=== PATIENT | male | born 1950 | race Caucasian/White ===

== ENCOUNTER 2017-05-30 17:48 | Emergency (ER) | payer MEDICARE, MEDICAID ==
[2017-05-30 18:52] LABS: ALT (SGPT) 72 U/L (8-55); AST (SGOT) 40 U/L (5-34); Alkaline Phosphatase 82 U/L (40-150); Anion Gap 16 mmol/L (10-20); BUN (Urea Nitrogen) 15 mg/dL (8.4-25.7); Bilirubin, Total 0.4 mg/dL (0.2-1.2); Calc. Creatinine Clearance 0 mL/min (70-130); Calcium 9.6 mg/dL (7.8-10.44); Carbon Dioxide 23 mmol/L (23-31); Chloride 104 mmol/L (98-107); Estimated GFR-MDRD 81; Globulin 3.2 g/dL (2.4-3.5); Protein, Total 7.4 g/dL (5.8-8.1)
[2017-05-30 18:53] LABS: Troponin I Less than 0.010 ng/mL (< 0.028)
[2017-05-30 19:02] LABS: Hematocrit 43.4 % (42.0-52.0); Mean Platelet Volume 8.6 fL (7.4-10.4); Neutrophil 37 % (42-75); Reactive Lymphocytes 13 % (0-10); White Blood Cell (WBC) Count 7.1 thou/uL (4.8-10.8)
--- NOTE | 2017-05-30 19:17 | CT ---
CT HEAD NONCONTRAST: Date: 05/30/17 CLINICAL HISTORY: HIV positive, vertigo, dizziness. FINDINGS: There is parenchymal volume loss with compensatory dilatation of the ventricular system. There is no acute intracranial hemorrhage, mass effect, or midline shift. Mild chronic microvascular ischemic dis ease present within the cerebral white matter. The imaged paranasal sinuses reveal no acute fluid lev els. IMPRESSION: 1. No acute intracranial abnormalities. 2. Mild chronic microvascular ischemic disease. POS: [facility]
--- NOTE | 2017-05-30 19:22 | RAD ---
FRONTAL RADIOGRAPH OF CHEST: Date: 05/30/17 COMPARISON: 10/20/16. HISTORY: Vertigo, dizzy. FINDINGS: Stable mild increased linear interstitial density noted. No pneumothorax, pleural fluid, focal consol idation, or alveolar edema. Heart and mediastinal contours are stable. IMPRESSION: No acute findings. POS: [facility]
[2017-05-30] MEDS ORDERED: Meclizine HCl 25 MG TAB ONE (19:25)
[2017-05-30 19:39] LABS: Bilirubin Negative (Negative); Blood, Urine Trace (Negative); Glucose, Urine (Dipstick) Negative (Negative); Ketone, Urine Negative (Negative); Nitrite Negative (Negative); Protein, Urine (Dipstick) Negative (Neg-Trace); Urobilinogen 0.2 mg/dL (0.2-1.0)
[2017-05-30 19:43] LABS: RBC/HPF 0-3 HPF (0-3); Squamous Epithelial 0-3 HPF (0-3); WBC/HPF 0-3 HPF (0-3)
== END 2017-05-30 20:07 | disposition home or self-care (01) ==
LOC: SCSER 17:48
DX: R42 Dizziness and giddiness (principal); K21.9 Gastro-esophageal reflux disease without esophagitis; B20 Human immunodeficiency virus [HIV] disease; E78.5 Hyperlipidemia, unspecified; I25.10 Atherosclerotic heart disease of native coronary artery without angina pectoris; I10 Essential (primary) hypertension; F41.9 Anxiety disorder, unspecified; Z79.82 Long term (current) use of aspirin; Z79.899 Other long term (current) drug therapy
CPT/HCPCS: 36415; 70450; 71010; 80053; 81003; 81015; 82553; 84484; 85025; 93005

== ENCOUNTER 2017-12-14 09:55 | Outpatient (CLI) | payer MEDICARE, MEDICAID | END 2017-12-14 09:56 | disposition home or self-care (01) | LOC: BICULT 09:55 | PROVIDERS: ATTEND Internal Medicine Infectious Disease | DX: K76.89 Other specified diseases of liver (principal); Z90.49 Acquired absence of other specified parts of digestive tract | CPT/HCPCS: 76705 ==

== ENCOUNTER 2022-04-03 16:50 | Emergency (ER) | payer OTHER, MEDICARE, MEDICAID ==
[2022-04-03] MEDS ORDERED: Lidocaine 1% PF 5 ML VIAL ONE (17:03)
[2022-04-03] MEDS ORDERED: Boostrix 0.5 ML (Tdap) VIAL (>/=7 yrs of age) ONE (17:20)
== END 2022-04-03 17:45 | disposition home or self-care (01) ==
LOC: ERS 16:50
DX: S01.81XA Laceration without foreign body of other part of head, initial encounter (principal); S80.212A Abrasion, left knee, initial encounter; K21.9 Gastro-esophageal reflux disease without esophagitis; E78.5 Hyperlipidemia, unspecified; Z21 Asymptomatic human immunodeficiency virus [HIV] infection status; I25.10 Atherosclerotic heart disease of native coronary artery without angina pectoris; I10 Essential (primary) hypertension; W01.0XXA Fall on same level from slipping, tripping and stumbling without subsequent striking against object, initial encounter
CPT/HCPCS: 12013; 90471; 90715

== ENCOUNTER 2022-04-09 10:46 | Emergency (ER) | payer OTHER, MEDICARE, MEDICAID ==
[2022-04-09] MEDS ORDERED: Rabies Vaccine Human 2.5 UNITS VIAL ONE (11:24)
== END 2022-04-09 11:29 | disposition home or self-care (01) ==
LOC: ERS 10:46
DX: S01.81XD Laceration without foreign body of other part of head, subsequent encounter (principal); I10 Essential (primary) hypertension; E11.9 Type 2 diabetes mellitus without complications; I25.10 Atherosclerotic heart disease of native coronary artery without angina pectoris; Z21 Asymptomatic human immunodeficiency virus [HIV] infection status; W01.0XXD Fall on same level from slipping, tripping and stumbling without subsequent striking against object, subsequent encounter
CPT/HCPCS: 90675

== ENCOUNTER 2022-06-09 01:53 | Emergency (ER) | payer MEDICARE, MEDICAID ==
[2022-06-09] MEDS ORDERED: Ondansetron PF 4 MG/2 ML Vial ONE (02:15)
[2022-06-09] MEDS ORDERED: Meclizine HCl 25 MG TAB ONE (02:34)
[2022-06-09 02:38] LABS: #Basophils 0.1 thou/uL (0.0-0.2); #Eosinphils 0.3 thou/uL (0.0-0.7); #Lymphocytes 3.6 thou/uL (1.20-3.40); #Monocytes 0.5 thou/uL (0.11-0.59); #Neutrophils 3.2 thou/uL (1.40-6.50); %Basophils 0.7 % (0.0-1.0); %Eosinophils 4.4 % (0.0-10.0); %Lymphocytes 46.5 % (21.0-51.0); %Monocytes 6.7 % (0.0-10.0); %Neutrophils 41.6 % (42.0-75.0); Hemoglobin 15.1 g/dL (14.0-18.0); Mean Corpuscular HGB CONC 35.8 g/dL (32.0-36.0); Mean Corpuscular Hemoglobin 34.7 pg (27.0-31.0); Mean Platelet Volume 9.1 fL (7.4-10.4); Platelet Count 168 10x3/uL (130-400); RBC Distribution Width 11.6 % (11.5-14.5); Red Blood Cell (RBC) Count 4.34 mill/uL (4.70-6.10); White Blood Cell (WBC) Count 7.7 10x3/uL (4.8-10.8)
[2022-06-09 02:55] LABS: ALT (SGPT) 64 U/L (8-55); AST (SGOT) 53 U/L (5-34); Albumin 4.1 g/dL (3.4-4.8); Alkaline Phosphatase 84 U/L (40-110); Anion Gap 15 mmol/L (10-20); BUN (Urea Nitrogen) 16 mg/dL (8.4-25.7); Bilirubin, Total 0.5 mg/dL (0.2-1.2); Calc. Creatinine Clearance 0 mL/min (70-130); Calcium 9.3 mg/dL (7.8-10.44); Carbon Dioxide 21 mmol/L (23-31); Chloride 105 mmol/L (98-107); Estimated GFR 88; Globulin 3.1 g/dL (2.4-3.5); Glucose 221 mg/dL (83-110); Potassium 3.6 mmol/L (3.5-5.1); Protein, Total 7.2 g/dL (5.8-8.1); Sodium 137 mmol/L (136-145)
== END 2022-06-09 05:09 | disposition home or self-care (01) ==
LOC: ERS 01:53
DX: R42 Dizziness and giddiness (principal); R11.2 Nausea with vomiting, unspecified; E11.9 Type 2 diabetes mellitus without complications; I10 Essential (primary) hypertension; I25.10 Atherosclerotic heart disease of native coronary artery without angina pectoris
CPT/HCPCS: 36415; 70450; 80053; 84484; 85025; 93005; 96374; J2405

== ENCOUNTER 2025-05-19 10:29 | Emergency (ER) | payer MEDICARE, MEDICAID ==
[2025-05-19 11:06] LABS: Bacteria/HPF None Seen HPF (None Seen); CAUTI Indications for Culture Pelvic or flank pain; Glucose, Urine (Dipstick) 100 mg/dL (Negative); Leukocyte Negative Leu/uL (Negative); Protein, Urine (Dipstick) Negative (Neg-Trace); RBC/HPF 0-3 HPF (0-3); Specific Gravity, Urine 1.015 (1.002-1.036); WBC/HPF 0-3 HPF (0-3)
[2025-05-19 11:08] LABS: Urine Culture Reflex No No
== END 2025-05-19 11:33 | disposition home or self-care (01) ==
LOC: ERS 10:29
DX: K59.00 Constipation, unspecified (principal); I10 Essential (primary) hypertension; E11.9 Type 2 diabetes mellitus without complications; I25.10 Atherosclerotic heart disease of native coronary artery without angina pectoris; B20 Human immunodeficiency virus [HIV] disease; E78.5 Hyperlipidemia, unspecified; Z95.5 Presence of coronary angioplasty implant and graft; Z79.84 Long term (current) use of oral hypoglycemic drugs; Z79.899 Other long term (current) drug therapy
CPT/HCPCS: 81001; 99283